=== PATIENT | male | born 1960 | race American Indian/Alaskan Native ===

== ENCOUNTER 2016-08-20 17:38 | Emergency (ER) | payer MEDICARE ==
[2016-08-20 18:20] LABS: Basophils % (Auto) 0.6 % (0.0-1.8); Hematocrit 35.6 % (35.5-45.6); Hemoglobin 11.8 gm/dl (11.8-15.2); Mean Corpuscular HGB Conc 33 % (32-34); Mean Corpuscular Hemoglobin 32 pg (28-32); Mean Corpuscular Volume 98 fl (84-94); Platelet Count 235 K/mm3 (140-440); Red Blood Count 3.65 M/mm3 (3.65-5.03); Red Cell Distribution Width 12.6 % (13.2-15.2); White Blood Count 5.1 K/mm3 (4.5-11.0)
[2016-08-20 18:33] LABS: Anion Gap 17 mmol/L; BUN/Creatinine Ratio 13.84; Blood Urea Nitrogen 18 mg/dL (9-20); Calcium 8.8 mg/dL (8.4-10.2); Carbon Dioxide 27 mmol/L (22-30); Chloride 104.2 mmol/L (98-107); Glucose 108 mg/dL (75-100); Potassium 3.9 mmol/L (3.6-5.0); Sodium 144 mmol/L (137-145)
--- NOTE | 2016-08-20 19:18 | XRay Report ---
FINAL REPORT PROCEDURE: XR CHEST ROUTINE 2V TECHNIQUE: PA and lateral chest radiographs were obtained. CPT 59750 HISTORY: CHEST PAIN COMPARISON: No prior studies are available for comparison. FINDINGS: Heart: Normal contour. Mediastinum/Vessels: Normal contour. Lungs/Pleural space: There are radiopaque metal BBs overlying the chest wall. No infiltrate, effusion, or pneumothorax is seen. Bony thorax: No acute osseous abnormality. Other: IMPRESSION: Metal density BBs are noted. No radiographic evidence of acute cardiopulmonary disease process.
--- NOTE | 2016-08-20 21:05 | Emergency Department Report ---
ED Chest Pain HPI - General Chief Complaint: Chest Pain Stated Complaint: CHEST PAIN Time Seen by Provider: 08/20/16 20:15 Source: patient Mode of arrival: Ambulatory Limitations: No Limitations - History of Present Illness Initial Comments: This is a 55-year-old Afro-[place] male presents to the emergency department with complaint of midsternal chest pain that was going on and off since this morning. The patient had an occasional cough and the chest pain worsened with cough or deep respirations. However he denied any shortness breath, nausea, vomiting or diaphoresis. He said that the chest pain occurred in 2 different segments. He had one early this morning and it went away on its own. In the second one occurred he came in to be seen but it has also stopped without any intervention and he is currently asymptomatic. He has a history of HIV, hyperthyroidism and takes meds compliantly for these conditions. He has a primary care physician but he cannot remember the name currently. He admits to tobacco use but denies any illicit drug use. No recent travel or sick contacts at home. Severity scale (0 -10): 0 - Related Data Home Medications Medication Instructions Recorded Confirmed Last Taken Elvitegr/Cobicist/Emtric/Tenof 1 each PO DAILY 12/30/14 08/20/16 12/30/14 [Stribild Tablet] Methimazole [Tapazole] 15 mg PO DAILY 08/20/16 08/20/16 Unknown Allergies Allergy/AdvReac Type Severity Reaction Status Date / Time No Known Allergies Allergy Verified 08/20/16 17:46 CHELSEA score - Chelsea Score Age > 65: (0) No Aspirin use within the Past 7 Days: (0) No 3 or more CAD Risk Factors: (0) No 2 or more Angina events in past 24 hrs: (1) Yes Known CAD with more than 50% Stenosis: (0) No Elevated Cardiac Markers: (0) No ST Deviation Greater than 0.5mm: (0) No CHELSEA Score: 1 ED Review of Systems ROS: Stated complaint: CHEST PAIN Other details as noted in HPI Comment: All other systems reviewed and negative Constitutional: denies: chills, fever Eyes: denies: eye pain, eye discharge, vision change ENT: denies: ear pain, throat pain Respiratory: cough. denies: shortness of breath, wheezing Cardiovascular: chest pain. denies: palpitations Gastrointestinal: denies: abdominal pain, nausea, diarrhea Genitourinary: denies: urgency, dysuria Musculoskeletal: denies: back pain, joint swelling, arthralgia Skin: denies: rash, lesions Neurological: denies: headache, weakness, paresthesias ED Past Medical Hx - Past Medical History Hx HIV: Yes Additional medical history: HYPERTHYROID - Surgical History Past Surgical History?: No - Social History Smoking Status: Current Every Day Smoker Substance Use Type: Alcohol - Medications Home Medications: Home Medications Medication Instructions Recorded Confirmed Last Taken Type Elvitegr/Cobicist/Emtric/Tenof 1 each PO DAILY 12/30/14 08/20/16 12/30/14 History [Stribild Tablet] Methimazole [Tapazole] 15 mg PO DAILY 08/20/16 08/20/16 Unknown History ED Physical Exam - General Limitations: No Limitations - Other Other exam information: GENERAL: The patient is well-developed well-nourished. HEENT: Normocephalic. Atraumatic. Extraocular motions are intact. Patient has moist mucous membranes. Pupils equal reactive to light bilaterally. NECK: Supple. Trachea is midline. CHEST/LUNGS: Clear to auscultation. There is no respiratory distress noted. HEART/CARDIOVASCULAR: Regular. There is no tachycardia. There is no gallop rub or murmur. ABDOMEN: Abdomen is soft, nontender. Patient has normal bowel sounds. There is no abdominal distention. SKIN: There is no rash. There is no edema. There is no diaphoresis. NEURO: The patient is awake, alert, and oriented. The patient is cooperative. The patient has no focal neurologic deficits. The patient has normal speech. MUSCULOSKELETAL: There is no tenderness or deformity. There is no limitation range of motion. There is no evidence of acute injury. ED Course Vital Signs 08/20/16 08/20/16 08/20/16 17:47 20:17 20:20 Temperature 98.5 F 98.5 F Pulse Rate 88 65 60 Respiratory 18 23 Rate Blood Pressure 116/79 128/86 O2 Sat by Pulse 98 99 Oximetry 08/20/16 20:29 Temperature Pulse Rate 84 Respiratory 18 Rate Blood Pressure O2 Sat by Pulse 100 Oximetry ED Medical Decision Making - Lab Data Result diagrams: 08/20/16 17:57 08/20/16 17:57 - EKG Data -: EKG Interpreted by Me EKG shows normal: sinus rhythm, axis, intervals, QRS complexes, ST-T waves Rate: normal - EKG Data When compared to previous EKG there are: changes noted (current EKG appears improved.His EKG showed some T-wave inversions to the anterior lateral leads and was consistent with LVH as well), previous EKG unavailable Interpretation: normal EKG - Radiology Data Radiology results: image reviewed interpreted by me: Chest x-ray did not show any acute process. Heart is normal shape and size. No effusions. No pneumothorax. No signs of pneumonia seen. - Medical Decision Making 55-year-old male presents with 2 episodes of chest pain that occurred earlier in the day but have since resolved and not returned. He was evaluated with physical exam, labs, imaging and EKG. EKG does not show any signs of ST elevation CT or dysrhythmia. Chest x-ray does not show any pneumothorax, pleural effusions, pneumonia or any acute process. His labs are unremarkable including negative troponins 2 and a negative d-dimer. Patient has been reevaluated multiple times over multiple hours and has remained asymptomatic. He has a CHELSEA score of 1 if his chest pain is considered angina and 0 if not. He is low on the heart score criteria for any near future adverse cardiac events. The patient will be encouraged to follow-up with his primary care doctor but will also be given a referral for cardiology for a possible outpatient stress test. He will return to the emergency department immediately with any return of his chest discomfort, any shortness of breath, or any acute distress. He understands and agrees the plan. - Differential Diagnosis CT, PE, costochondritis, GERD, pneumonia Critical Care Time: No Critical care attestation.: If time is entered above; I have spent that time in minutes in the direct care of this critically ill patient, excluding procedure time. ED Disposition Clinical Impression: Chest pain Qualifiers: Chest pain type: unspecified Qualified Code(s): R07.9 - Chest pain, unspecified Disposition: DC-01 TO HOME OR SELFCARE Is pt being admited?: No Condition: Stable Instructions: Chest Pain (ED) Additional Instructions: Please follow-up with your primary care physician in the next few days. I referral for a local chocolate temperer, Dr. Leiva, patient would like to follow-up regarding your previous chest pain. Return to the emergency department immediately or call 911 with any return of your chest pain, development of shortness of breath, or any acute distress. Referrals: PRIMARY CARE, [Primary Care Provider] - 3-5 Days EVELYNE LEIVA MD [Staff Physician] - 3-5 Days Time of Disposition: 21:51
[2016-08-20 21:57] VITALS: BP 113/61
== END 2016-08-20 22:02 | disposition home or self-care (01) ==
LOC: ED 17:38
DX: R07.81 Pleurodynia (principal); E05.90 Thyrotoxicosis, unspecified without thyrotoxic crisis or storm; F17.200 Nicotine dependence, unspecified, uncomplicated
CPT/HCPCS: 36415; 71020; 80048; 84443; 84484; 85025; 85379; 93005; 93010; 99285

== ENCOUNTER 2016-10-07 09:14 | Emergency (ER) | payer MEDICARE ==
--- NOTE | 2016-10-07 12:21 | Emergency Department Report ---
- General Chief Complaint: Upper Respiratory Infection Stated Complaint: CHEST PAIN/COUGH Time Seen by Provider: 10/07/16 12:07 Source: patient Mode of arrival: Ambulatory Limitations: No Limitations - History of Present Illness Initial Comments: pt is s 56 y/o aam with hiv pos who presents for head congestion clear post nasal drip and cough clear productive x 1 week, pt has IDP follow up scheduled to see same next month pt denies fever no chills no n/v MD Complaint: cough, sore throat, rhinorrhea, nasal congestion Onset/Timin -: week(s) Severity: moderate Severity scale (0 -10): 4 Consistency: constant Improves With: nothing Worsens With: activity Associated Symptoms: rhinorrhea, nasal congestion, sore throat, cough Treatments Prior to Arrival: none - Related Data Home Medications Medication Instructions Recorded Confirmed Last Taken Elvitegr/Cobicist/Emtric/Tenof 1 each PO DAILY 12/30/14 08/20/16 12/30/14 [Stribild Tablet] Methimazole [Tapazole] 15 mg PO DAILY 08/20/16 08/20/16 Unknown Previous Rx's Medication Instructions Recorded Last Taken Type Azithromycin [Zithromax TAB] 250 mg PO QDAY #6 tablet 10/07/16 Unknown Rx Guaifenesin/Pseudoephedrne HCl 1 tab PO BID #24 tab 10/07/16 Unknown Rx [Mucinex D ER 1,200-120 mg Tab] Ibuprofen [Motrin 800 MG tab] 800 mg PO Q8HR PRN #30 tablet 10/07/16 Unknown Rx Allergies Allergy/AdvReac Type Severity Reaction Status Date / Time No Known Allergies Allergy Verified 08/20/16 17:46 ED Review of Systems ROS: Stated complaint: CHEST PAIN/COUGH Other details as noted in HPI Constitutional: denies: chills, fever Eyes: denies: eye pain, eye discharge, vision change ENT: throat pain, congestion Respiratory: cough. denies: shortness of breath, wheezing Cardiovascular: denies: chest pain, palpitations Endocrine: no symptoms reported Gastrointestinal: denies: abdominal pain, nausea, diarrhea Genitourinary: denies: urgency, dysuria Musculoskeletal: denies: back pain, joint swelling, arthralgia Skin: denies: rash, lesions Neurological: denies: headache, weakness, paresthesias Psychiatric: as per HPI Hematological/Lymphatic: denies: easy bleeding, easy bruising ED Past Medical Hx - Past Medical History Previous Medical History?: Yes Hx HIV: Yes Additional medical history: HYPERTHYROID - Surgical History Past Surgical History?: No - Social History Smoking Status: Current Every Day Smoker Substance Use Type: Alcohol - Medications Home Medications: Home Medications Medication Instructions Recorded Confirmed Last Taken Type Elvitegr/Cobicist/Emtric/Tenof 1 each PO DAILY 12/30/14 08/20/16 12/30/14 History [Stribild Tablet] Methimazole [Tapazole] 15 mg PO DAILY 08/20/16 08/20/16 Unknown History Azithromycin [Zithromax TAB] 250 mg PO QDAY #6 tablet 10/07/16 Unknown Rx Guaifenesin/Pseudoephedrne HCl 1 tab PO BID #24 tab 10/07/16 Unknown Rx [Mucinex D ER 1,200-120 mg Tab] Ibuprofen [Motrin 800 MG tab] 800 mg PO Q8HR PRN #30 tablet 10/07/16 Unknown Rx ED Physical Exam - General Limitations: No Limitations General appearance: alert, in no apparent distress - Head Head exam: Present: atraumatic, normocephalic - Eye Eye exam: Present: normal appearance, PERRL, EOMI - ENT ENT exam: Present: mucous membranes moist, TM's normal bilaterally - Expanded ENT Exam Expanded Ear exam: Present: normal external inspection Mouth exam: Present: normal external inspection. Absent: trismus Throat exam: Positive: tonsillar erythema, tonsillomegaly. Negative: tonsillar exudate, R peritonsillar mass, L peritonsillar mass - Neck Neck exam: Present: normal inspection - Respiratory Respiratory exam: Present: normal lung sounds bilaterally, chest wall tenderness. Absent: respiratory distress, wheezes, rhonchi, stridor, accessory muscle use, decreased breath sounds, prolonged expiratory - Cardiovascular Cardiovascular Exam: Present: regular rate, normal rhythm, normal heart sounds. Absent: systolic murmur, diastolic murmur, rubs, gallop - GI/Abdominal GI/Abdominal exam: Present: soft, normal bowel sounds - Rectal Rectal exam: Present: deferred - Extremities Exam Extremities exam: Present: normal inspection - Back Exam Back exam: Present: normal inspection - Neurological Exam Neurological exam: Present: alert, oriented X3, CN II-XII intact, normal gait, reflexes normal - Psychiatric Psychiatric exam: Present: normal affect, normal mood - Skin Skin exam: Present: warm, dry, intact, normal color. Absent: rash ED Course Vital Signs 10/07/16 09:21 Temperature 99.1 F Pulse Rate 78 Respiratory 18 Rate Blood Pressure 133/78 O2 Sat by Pulse 98 Oximetry ED Medical Decision Making - Medical Decision Making pt is a 56 y/o aam with hx hiv , on ART, has IDP follow, pt presents for uri cough head congestion post nasal drip with sore throat x 1 week pt denies fever no chills no sob no wheezing, pt endors adherence with medication regimine exam : TMs clear bilat, nose: bilat turbinate erythema boggy clear post nasal drip, pharnx: moderat erythema no exudate no lesion mild swelling uvula midline, no stridor airway is patent there is no wheezing lungs clear bilat all lobes, plan : Zpack, Mucinex D, Ibuprofen, follow up with pcp IDP as scheduled pt verbalized agreement and understanding with same. Critical care attestation.: If time is entered above; I have spent that time in minutes in the direct care of this critically ill patient, excluding procedure time. ED Disposition Clinical Impression: URI (upper respiratory infection) Qualifiers: URI type: acute nasopharyngitis (common cold) Qualified Code(s): J00 - Acute nasopharyngitis [common cold] Disposition: TO HOME OR SELFCARE Is pt being admited?: No Does the pt Need Aspirin: No Condition: Good Instructions: Upper Respiratory Infection (ED) Additional Instructions: follow up with your IDP doctor as scheduled Prescriptions: Azithromycin [Zithromax TAB] 250 mg PO QDAY #6 tablet Guaifenesin/Pseudoephedrne HCl [Mucinex D ER 1,200-120 mg Tab] 1 tab PO BID #24 tab Ibuprofen [Motrin 800 MG tab] 800 mg PO Q8HR PRN #30 tablet PRN Reason: Pain , Severe (7-10) Referrals: PRIMARY CARE,MD [Primary Care Provider] - 3-5 Days Forms: Work/School Release Form(ED) Time of Disposition: 12:30
[2016-10-07 12:49] VITALS: BP 132/87
== END 2016-10-07 12:48 | disposition home or self-care (01) ==
LOC: ED 09:14
DX: J06.9 Acute upper respiratory infection, unspecified (principal); J00 Acute nasopharyngitis [common cold]; F17.200 Nicotine dependence, unspecified, uncomplicated
CPT/HCPCS: 99282

== ENCOUNTER 2018-06-02 13:12 | Emergency (ER) | payer MEDICARE ==
--- NOTE | 2018-06-02 13:27 | Emergency Department Report ---
Chief Complaint: Chest Pain Stated Complaint: CHEST PAIN Time Seen by Provider: 06/02/18 13:24 - HPI History of Present Illness: CP DESCRIBED CRAMP SUBSTERNAL SINCE TH TODAY WAS WORSE SOME BETTER NOW PMH HYPERTHYROIDISM HIV PSH NONE RX ANTIVIRAL-GENVOYA AND SYNTHROID PCP NOT SEEN IN 6M UNABLE TO GET SCHEDULED RYAN IDP CIG ETOH NO DRUGS MSE COMPLETED MSE screening note: Focused history and physical exam performed. Due to findings the following was ordered: ED Disposition for MSE Condition: Stable
--- NOTE | 2018-06-02 13:29 | Event Note ---
LAST VIRAL LOAD ETC 6 M AGO DAD DEC CA MOM A/W NO FEVER POS CHILLS
[2018-06-02 14:30] LABS: Hematocrit 39.8 % (35.5-45.6); Hemoglobin 13.4 gm/dl (11.8-15.2); Mean Corpuscular HGB Conc 34 % (32-34); Mean Corpuscular Volume 101 fl (84-94); Platelet Count 263 K/mm3 (140-440); Red Blood Count 3.95 M/mm3 (3.65-5.03); Red Cell Distribution Width 12.4 % (13.2-15.2)
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
[2018-06-02 15:26] LABS: Alanine Aminotransferase 13 units/L (7-56); Albumin 4.4 g/dL (3.9-5); BUN/Creatinine Ratio 12; Blood Urea Nitrogen 13 mg/dL (9-20); Calcium 9.2 mg/dL (8.4-10.2); Hemolysis Index 5
[2018-06-02 16:52] LABS: Bilirubin,Urine NEG (Negative); Blood,Urine MOD (Negative); Color,Urine Yellow (Yellow); Mucus,Urine 1+ /HPF; Protein,Urine <15 mg/dL mg/dL (Negative)
[2018-06-02 17:05] LABS: Chol/HDL Ratio 2.7 %
[2018-06-02] MEDS ORDERED: IBUPROFEN PO ONE (17:34)
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
[2018-06-02 17:57] VITALS: BP 122/76
== END 2018-06-02 17:56 | disposition home or self-care (01) ==
LOC: ED 13:12
DX: M94.0 Chondrocostal junction syndrome [Tietze] (principal); E05.90 Thyrotoxicosis, unspecified without thyrotoxic crisis or storm; F17.200 Nicotine dependence, unspecified, uncomplicated; Z21 Asymptomatic human immunodeficiency virus [HIV] infection status
CPT/HCPCS: 36415; 71046; 80053; 80061; 81001; 84443; 84484; 85027; 93005; 93010; 99284

== ENCOUNTER 2019-05-28 16:22 | Emergency (ER) | payer MEDICARE ==
[2019-05-28 17:32] VITALS: BP 154/95
[2019-05-28] MEDS ORDERED: diphenhydrAMINE 25 MG CAP PO ONE (21:34)
[2019-05-28] MEDS ORDERED: dexAMETHasone 20 MG/5 ML VIAL IM ONE (21:34)
[2019-05-28] MEDS ORDERED: ACETAMINOPHEN 500 MG TAB PO ONE (21:34)
[2019-05-28] MEDS ORDERED: METOCLOPRAMIDE 10 MG TAB PO ONE (21:34)
--- NOTE | 2019-05-28 22:32 | Emergency Department Report ---
ED Headache HPI - General Chief Complaint: Headache Stated Complaint: HEAD PAIN/LT SIDE Time Seen by Provider: 05/28/19 21:34 - History of Present Illness Initial Comments: Mr. Stevenson is a 58 y/o aam, who presents for posterior headache 4/10 aching, with associated neck spasm. There is no dizziness, no lightheadedness, no photophobia. Pt has had similar headaches in past. Pt denies fall, injury, or trauma. Pain is exacerbated by movement and activity. pain is relieved by rest. Quality: moderate Head Injury Location: occipital Recent Head Trauma: occasional headaches Modifying Factors: improves with: movement, other (activity ) Associated Symptoms: denies: fatigue, facial pain, fever/chills, nausea /vomiting, nasal congestion, nasal drainage, sinus infection, stiff neck, vision changes, weakness Allergies/Adverse Reactions: Allergies No Known Allergies Allergy (Verified 08/20/16 17:46) Home Medications: Ambulatory Orders Elviteg/Cob/Emtri/Tenofo Disop [Stribild Tablet] 1 each PO DAILY 12/30/14 methIMAzole [Tapazole] 15 mg PO DAILY 08/20/16 Azithromycin [Zithromax TAB] 250 mg PO QDAY #6 tablet 10/07/16 Guaifenesin/Pseudoephedrne HCl [Mucinex D ER 1,200-120 mg Tab] 1 tab PO BID #24 tab 10/07/16 Ibuprofen [Motrin 800 MG tab] 800 mg PO Q8HR PRN #30 tablet 10/07/16 Cyclobenzaprine [Flexeril] 10 mg PO QHS PRN #10 tablet 06/02/18 Ibuprofen [Motrin] 600 mg PO Q8H PRN #20 tablet 06/02/18 Acetaminophen [Tylenol] 1,000 mg PO Q6HR PRN #30 tablet 05/28/19 Menthol/Camphor [[place] Ointment] 1 applicatio TP QID PRN #1 tube 05/28/19 Metoclopramide [Reglan] 10 mg PO TID PRN #30 tab 05/28/19 diphenhydrAMINE [Benadryl CAP] 25 mg PO Q6H PRN #30 capsule 05/28/19 ED Review of Systems ROS: Stated complaint: HEAD PAIN/LT SIDE Other details as noted in HPI Constitutional: denies: chills, fever, malaise Eyes: denies: eye pain, eye discharge, vision change ENT: denies: ear pain, throat pain Respiratory: denies: cough, shortness of breath, wheezing Cardiovascular: denies: chest pain, palpitations Endocrine: no symptoms reported Gastrointestinal: denies: abdominal pain, nausea, vomiting, diarrhea Genitourinary: denies: urgency, dysuria Musculoskeletal: other (neck pain ). denies: back pain, joint swelling, arthralgia, myalgia Skin: denies: rash, lesions Neurological: headache. denies: weakness, paresthesias Psychiatric: denies: anxiety, depression Hematological/Lymphatic: denies: easy bleeding, easy bruising ED Past Medical Hx - Past Medical History Previous Medical History?: Yes Hx HIV: Yes Additional medical history: HYPERTHYROID - Surgical History Past Surgical History?: No - Social History Smoking Status: Current Every Day Smoker Substance Use Type: Alcohol - Medications Home Medications: Home Medications Medication Instructions Recorded Confirmed Last Taken Type Elviteg/Cob/Emtri/Tenofo Disop 1 each PO DAILY 12/30/14 08/20/16 12/30/14 History [Stribild Tablet] methIMAzole [Tapazole] 15 mg PO DAILY 08/20/16 08/20/16 Unknown History Azithromycin [Zithromax TAB] 250 mg PO QDAY #6 tablet 10/07/16 Unknown Rx Guaifenesin/Pseudoephedrne HCl 1 tab PO BID #24 tab 10/07/16 Unknown Rx [Mucinex D ER 1,200-120 mg Tab] Ibuprofen [Motrin 800 MG tab] 800 mg PO Q8HR PRN #30 tablet 10/07/16 Unknown Rx Cyclobenzaprine [Flexeril] 10 mg PO QHS PRN #10 tablet 06/02/18 Unknown Rx Ibuprofen [Motrin] 600 mg PO Q8H PRN #20 tablet 06/02/18 Unknown Rx Acetaminophen [Tylenol] 1,000 mg PO Q6HR PRN #30 tablet 05/28/19 Unknown Rx Menthol/Camphor [[place] 1 applicatio TP QID PRN #1 tube 05/28/19 Unknown Rx Ointment] Metoclopramide [Reglan] 10 mg PO TID PRN #30 tab 05/28/19 Unknown Rx diphenhydrAMINE [Benadryl CAP] 25 mg PO Q6H PRN #30 capsule 05/28/19 Unknown Rx ED Physical Exam - General Limitations: No Limitations General appearance: alert, in no apparent distress - Head Head exam: Present: atraumatic, normocephalic - Eye Eye exam: Present: normal appearance, PERRL, EOMI Pupils: Present: normal accommodation - ENT ENT exam: Present: normal orophraynx, mucous membranes moist, TM's normal bilaterally, normal external ear exam - Neck Neck exam: Present: normal inspection, full ROM. Absent: tenderness, meningismus, lymphadenopathy, thyromegaly - Expanded Neck Exam Expanded Neck exam: Absent: tenderness (no posterior vertebral point tenderness rom intact and unrestricted to all rangel), midline deformity, anterior neck swelling, carotid bruit, tracheal deviation - Respiratory Respiratory exam: Present: normal lung sounds bilaterally. Absent: respiratory distress, wheezes, chest wall tenderness - Cardiovascular Cardiovascular Exam: Present: regular rate, normal rhythm, normal heart sounds. Absent: systolic murmur, diastolic murmur, rubs, gallop - GI/Abdominal GI/Abdominal exam: Present: soft, normal bowel sounds. Absent: distended, tenderness, bruit, hernia - Rectal Rectal exam: Present: deferred - Extremities Exam Extremities exam: Present: normal inspection, full ROM, normal capillary refill. Absent: tenderness, pedal edema, calf tenderness - Back Exam Back exam: Present: normal inspection, full ROM, rash noted. Absent: tenderness, CVA tenderness (R), CVA tenderness (L), muscle spasm, paraspinal tenderness, vertebral tenderness - Neurological Exam Neurological exam: Present: alert, oriented X3, CN II-XII intact, normal gait, reflexes normal. Absent: motor sensory deficit - Psychiatric Psychiatric exam: Present: normal affect, normal mood - Skin Skin exam: Present: warm, dry, intact, normal color. Absent: rash ED Course Vital Signs 05/28/19 17:30 Temperature 97.9 F Pulse Rate 81 Respiratory 18 Rate Blood Pressure 154/95 O2 Sat by Pulse 97 Oximetry ED Medical Decision Making - Medical Decision Making Headache is improved with medications given in ED. Patient is currently alert and oriented x3 amatory steady gait pain reduced to 1/10. Patient will be DC'd home with prescriptions will follow-up with primary care doctor in 2 to 3 days. Patient verbalized agreement and understanding of discharge plan DC'd in stable condition at this time. Critical care attestation.: If time is entered above; I have spent that time in minutes in the direct care of this critically ill patient, excluding procedure time. ED Disposition Clinical Impression: Headache Qualifiers: Headache type: tension-type Headache chronicity pattern: unspecified pattern Intractability: not intractable Qualified Code(s): G44.209 - Tension-type headache, unspecified, not intractable Disposition: DC-01 TO HOME OR SELFCARE Is pt being admited?: No Does the pt Need Aspirin: No Condition: Stable Instructions: Acute Headache (ED), Muscle Spasm (ED) Prescriptions: Acetaminophen [Tylenol] 1,000 mg PO Q6HR PRN #30 tablet PRN Reason: Headache diphenhydrAMINE [Benadryl CAP] 25 mg PO Q6H PRN #30 capsule PRN Reason: Headache Metoclopramide [Reglan] 10 mg PO TID PRN #30 tab PRN Reason: Headache Menthol/Camphor [[place] Ointment] 1 applicatio TP QID PRN #1 tube PRN Reason: muscle pain Referrals: MARTÍNEZ GARZA MD [Staff Physician] - 3-5 Days Forms: Work/School Release Form(ED) Time of Disposition: 22:43
== END 2019-05-28 22:50 | disposition home or self-care (01) ==
LOC: ED 16:22
DX: R51 Headache (principal); R25.2 Cramp and spasm; E05.90 Thyrotoxicosis, unspecified without thyrotoxic crisis or storm; F17.200 Nicotine dependence, unspecified, uncomplicated; Z79.1 Long term (current) use of non-steroidal anti-inflammatories (NSAID); Z79.2 Long term (current) use of antibiotics; Z79.899 Other long term (current) drug therapy; Z21 Asymptomatic human immunodeficiency virus [HIV] infection status
CPT/HCPCS: 96372; 99282; J1100

== ENCOUNTER 2020-06-30 12:41 | Emergency (ER) | payer SELFPAY ==
--- NOTE | 2020-06-30 16:42 | Event Note ---
ED Screening Note Date of service: 06/30/20 Time: 16:39 ED Screening Note: 59-year-old male patient with history of hypothyroidism and HIV (compliant with medications; undetectable viral load) presents to the emergency department with complaints of painful urination and a left inguinal mass. No fever. No vomiting. No changes in bowel habits. No testicular pain/swelling. No penile discharge. General: Awake, appropriately interactive, no acute distress. Neck: Supple. Full range of motion intact. Cardiovascular: Normal peripheral perfusion. Pulmonary: No respiratory distress. Patient is speaking normally without use of accessory muscles. 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 Left inguinal/suprapubic mass, tender to palpation, no overlying warmth or erythema, not easily reducible, not mobile, no fluctuance, mass does not protrude with Valsalva maneuver. Skin: No apparent rashes or lesions. Neurological: No facial asymmetry. Speech is clear. Follows commands. Patient is alert and oriented. Musculoskeletal: Moves all four extremities spontaneously with normal range of motion. Psych: Cooperative. Appropriate mood and affect. I have greeted and performed a focused rapid initial assessment of this patient. A comprehensive ED assessment and evaluation of the patient, analysis of all test results, and completion of the medical decision-making process will be conducted by additional ED providers. This initial assessment/diagnostic orders/clinical plan/treatment(s) is/are subject to change based on patients health status, clinical progression and re-assessment. Further treatment and workup at subsequent clinical provider's discretion. Patient/guardian urged not to elope from the ED as their condition may be serious if not clinically assessed and managed.
[2020-06-30 17:32] LABS: Basophils # (Auto) 0.1 K/mm3 (0.0-0.1); Eosinophils # (Auto) 0.3 K/mm3 (0.0-0.4); Eosinophils % (Auto) 5.6 % (0.0-4.3); Hematocrit 36.4 % (35.5-45.6); Hemoglobin 12.3 gm/dl (11.8-15.2); Lymphocytes # (Auto) 2.2 K/mm3 (1.2-5.4); Lymphocytes % (Auto) 41.4 % (13.4-35.0); Mean Corpuscular HGB Conc 34 % (32-34); Mean Corpuscular Volume 98 fl (84-94); Monocytes # (Auto) 0.7 K/mm3 (0.0-0.8); Monocytes % (Auto) 13.1 % (0.0-7.3); Platelet Count 263 K/mm3 (140-440); Red Cell Distribution Width 12.6 % (13.2-15.2)
[2020-06-30 18:09] LABS: Alanine Aminotransferase 19 units/L (7-56); Albumin 4.1 g/dL (3.9-5); BUN/Creatinine Ratio 12; Blood Urea Nitrogen 12 mg/dL (9-20); Calcium 8.9 mg/dL (8.4-10.2); Hemolysis Index 8
[2020-06-30 19:02] LABS: Bilirubin,Urine NEG (Negative); Blood,Urine NEG (Negative); Color,Urine Yellow (Yellow); Mucus,Urine 2+ /HPF; Protein,Urine <15 mg/dL mg/dL (Negative); WBC,Urine < 1.0 /HPF (0.0-6.0)
[2020-06-30] MEDS ORDERED: SODIUM CHLORIDE 0.9% 1000 ML 1,000 ML IV ONE (20:01)
[2020-06-30] MEDS ORDERED: MORPHINE 4 MG/1 ML INJ IV ONE (20:01)
[2020-06-30] MEDS ORDERED: ONDANSETRON 4 MG/2 ML INJ IV ONE (20:01)
--- NOTE | 2020-06-30 20:04 | Emergency Department Report ---
ED General Adult HPI - General Chief complaint: Extremity Injury, Lower Stated complaint: PAIN IN GROIN Time Seen by Provider: 06/30/20 19:45 Source: patient Mode of arrival: Ambulatory Limitations: No Limitations - History of Present Illness Initial comments: Patient is 59 years old male with history of HIV. Patient presented to the ER complaining of left groin swelling that is been going on for 3 days. Patient stated that he had it before but for the last few days became painful. He stated that pain increase with urination. Patient denied any fever or chills. No nausea or vomiting. - Related Data Home Medications Medication Instructions Recorded Confirmed Last Taken Elviteg/Cob/Emtri/Tenofo Disop 1 each PO DAILY 12/30/14 08/20/16 12/30/14 [Stribild Tablet] methIMAzole [Tapazole] 15 mg PO DAILY 08/20/16 08/20/16 Unknown Previous Rx's Medication Instructions Recorded Last Taken Type Azithromycin [Zithromax TAB] 250 mg PO QDAY #6 tablet 10/07/16 Unknown Rx Guaifenesin/Pseudoephedrne HCl 1 tab PO BID #24 tab 10/07/16 Unknown Rx [Mucinex D ER 1,200-120 mg Tab] Ibuprofen [Motrin 800 MG tab] 800 mg PO Q8HR PRN #30 tablet 10/07/16 Unknown Rx Cyclobenzaprine [Flexeril] 10 mg PO QHS PRN #10 tablet 06/02/18 Unknown Rx Ibuprofen [Motrin] 600 mg PO Q8H PRN #20 tablet 06/02/18 Unknown Rx Acetaminophen [Tylenol] 1,000 mg PO Q6HR PRN #30 tablet 05/28/19 Unknown Rx Menthol/Camphor [[place] 1 applicatio TP QID PRN #1 tube 05/28/19 Unknown Rx Ointment] Metoclopramide [Reglan] 10 mg PO TID PRN #30 tab 05/28/19 Unknown Rx diphenhydrAMINE [Benadryl CAP] 25 mg PO Q6H PRN #30 capsule 05/28/19 Unknown Rx Allergies Allergy/AdvReac Type Severity Reaction Status Date / Time No Known Allergies Allergy Verified 06/30/20 14:26 ED Review of Systems ROS: Stated complaint: PAIN IN GROIN Other details as noted in HPI Comment: All other systems reviewed and negative Constitutional: denies: chills, fever Respiratory: denies: cough, shortness of breath, SOB with exertion Cardiovascular: denies: chest pain, palpitations Gastrointestinal: denies: abdominal pain, nausea, vomiting, diarrhea, constipation, hematemesis, melena, hematochezia Genitourinary: dysuria Musculoskeletal: denies: back pain Neurological: denies: headache, weakness, numbness, paresthesias, confusion ED Past Medical Hx - Past Medical History Hx HIV: Yes Additional medical history: HYPERTHYROID - Social History Smoking Status: Current Every Day Smoker Substance Use Type: None - Medications Home Medications: Home Medications Medication Instructions Recorded Confirmed Last Taken Type Elviteg/Cob/Emtri/Tenofo Disop 1 each PO DAILY 12/30/14 08/20/16 12/30/14 History [Stribild Tablet] methIMAzole [Tapazole] 15 mg PO DAILY 08/20/16 08/20/16 Unknown History Azithromycin [Zithromax TAB] 250 mg PO QDAY #6 tablet 10/07/16 Unknown Rx Guaifenesin/Pseudoephedrne HCl 1 tab PO BID #24 tab 10/07/16 Unknown Rx [Mucinex D ER 1,200-120 mg Tab] Ibuprofen [Motrin 800 MG tab] 800 mg PO Q8HR PRN #30 tablet 10/07/16 Unknown Rx Cyclobenzaprine [Flexeril] 10 mg PO QHS PRN #10 tablet 06/02/18 Unknown Rx Ibuprofen [Motrin] 600 mg PO Q8H PRN #20 tablet 06/02/18 Unknown Rx Acetaminophen [Tylenol] 1,000 mg PO Q6HR PRN #30 tablet 05/28/19 Unknown Rx Menthol/Camphor [[place] 1 applicatio TP QID PRN #1 tube 05/28/19 Unknown Rx Ointment] Metoclopramide [Reglan] 10 mg PO TID PRN #30 tab 05/28/19 Unknown Rx diphenhydrAMINE [Benadryl CAP] 25 mg PO Q6H PRN #30 capsule 05/28/19 Unknown Rx ED Physical Exam - General Limitations: No Limitations General appearance: alert, in no apparent distress - Head Head exam: Present: atraumatic, normocephalic, normal inspection - Eye Eye exam: Present: normal appearance, PERRL - ENT ENT exam: Present: normal exam, normal orophraynx, mucous membranes moist - Neck Neck exam: Present: normal inspection, full ROM. Absent: tenderness, meningismus - Respiratory Respiratory exam: Present: normal lung sounds bilaterally - Cardiovascular Cardiovascular Exam: Present: regular rate, normal rhythm, normal heart sounds - GI/Abdominal GI/Abdominal exam: Present: soft, normal bowel sounds, hernia (Left inguinal). Absent: distended, tenderness, guarding, rebound, rigid, organomegaly, bruit, pulsatile mass - Extremities Exam Extremities exam: Present: normal inspection, full ROM, normal capillary refill. Absent: pedal edema, calf tenderness - Back Exam Back exam: Present: normal inspection, full ROM. Absent: CVA tenderness (R), CVA tenderness (L) - Neurological Exam Neurological exam: Present: alert, oriented X3, CN II-XII intact - Psychiatric Psychiatric exam: Present: normal mood - Skin Skin exam: Present: warm, intact, normal color ED Course Vital Signs 06/30/20 06/30/20 06/30/20 14:25 18:06 20:38 Temperature 98.6 F 98.3 F Pulse Rate 80 61 77 Respiratory 20 14 Rate Blood Pressure Blood Pressure 140/87 151/90 [Left] O2 Sat by Pulse 100 100 Oximetry 06/30/20 06/30/20 06/30/20 20:46 21:00 21:20 Temperature Pulse Rate 79 75 Respiratory 13 13 Rate Blood Pressure Blood Pressure [Left] O2 Sat by Pulse 99 100 97 Oximetry 06/30/20 06/30/20 06/30/20 21:30 21:46 22:00 Temperature Pulse Rate 73 60 68 Respiratory 12 13 15 Rate Blood Pressure 146/92 Blood Pressure [Left] O2 Sat by Pulse 100 98 100 Oximetry 06/30/20 06/30/20 06/30/20 22:18 22:30 22:46 Temperature Pulse Rate 80 69 68 Respiratory 19 11 L 13 Rate Blood Pressure 146/92 134/80 134/80 Blood Pressure [Left] O2 Sat by Pulse 94 97 99 Oximetry 06/30/20 06/30/20 06/30/20 23:00 23:16 23:30 Temperature Pulse Rate 68 67 82 Respiratory 12 15 12 Rate Blood Pressure 134/80 141/81 133/71 Blood Pressure [Left] O2 Sat by Pulse 100 99 99 Oximetry 06/30/20 07/01/20 07/01/20 23:46 00:00 00:16 Temperature Pulse Rate 66 71 96 H Respiratory 12 14 16 Rate Blood Pressure 133/71 137/80 137/92 Blood Pressure [Left] O2 Sat by Pulse 98 98 90 Oximetry 07/01/20 07/01/20 07/01/20 00:30 00:46 01:00 Temperature Pulse Rate 68 69 78 Respiratory 13 16 21 Rate Blood Pressure 136/85 136/85 135/72 Blood Pressure [Left] O2 Sat by Pulse 100 97 96 Oximetry 07/01/20 07/01/20 07/01/20 01:16 01:30 01:46 Temperature Pulse Rate 64 68 92 H Respiratory 12 17 22 Rate Blood Pressure 135/72 124/82 124/82 Blood Pressure [Left] O2 Sat by Pulse 98 100 88 Oximetry 07/01/20 07/01/20 07/01/20 02:00 02:16 02:30 Temperature Pulse Rate 73 88 Respiratory 13 18 Rate Blood Pressure 119/26 119/26 119/26 Blood Pressure [Left] O2 Sat by Pulse 98 100 99 Oximetry 07/01/20 07/01/20 07/01/20 02:46 03:00 03:15 Temperature Pulse Rate 60 69 68 Respiratory 13 14 15 Rate Blood Pressure 43/24 43/24 137/74 Blood Pressure [Left] O2 Sat by Pulse 98 98 97 Oximetry 07/01/20 07/01/20 07/01/20 03:31 03:45 04:00 Temperature Pulse Rate 62 75 77 Respiratory 13 12 10 L Rate Blood Pressure 126/78 126/78 126/78 Blood Pressure [Left] O2 Sat by Pulse 98 99 96 Oximetry 07/01/20 07/01/20 07/01/20 04:15 04:31 04:45 Temperature Pulse Rate 63 86 84 Respiratory 13 13 11 L Rate Blood Pressure 139/87 143/78 143/78 Blood Pressure [Left] O2 Sat by Pulse 99 98 97 Oximetry 07/01/20 07/01/20 07/01/20 05:00 05:15 05:31 Temperature Pulse Rate 78 64 59 L Respiratory 13 10 L 13 Rate Blood Pressure 143/78 130/83 131/87 Blood Pressure [Left] O2 Sat by Pulse 99 98 98 Oximetry 07/01/20 07/01/20 05:45 07:39 Temperature Pulse Rate 67 70 Respiratory 12 15 Rate Blood Pressure 131/87 Blood Pressure 126/83 [Left] O2 Sat by Pulse 99 99 Oximetry - Consultations Consultation #1: 06/30/20 22:15 I discussed the case with Dr. Lakhani, surgeon investigation specialist. She advised to transfer patient to another facility with urology on-call. Consultation #2: 06/30/20 22:25 I discussed the patient with Dr. Contreras, surgeon investigation specialist at [facility]. Dr. Contreras stated that she will not be able to accept the patient tonight because there is nothing that she can do tonight for the patient. She advised to keep the patient in the ER and call in the morning for transfer. Consultation #3: 06/30/20 23:20 Try to contact several hospital for transfer including [facility], [facility], [facility] and [facility]. All this hospital have no bed and they not accept transfer. I discussed the patient again with Dr. Meadows, emergency physician and Dr. Galarza, surgeon on-call at [facility], post accepted the patient to be transfer for further management. ED Medical Decision Making - Lab Data Result diagrams: 06/30/20 16:50 06/30/20 16:50 - Radiology Data Radiology results: report reviewed - Medical Decision Making Patient is 59 years old male with history of HIV. Patient presented to the ER complaining of left groin swelling that is been going on for 3 days. Patient stated that he had it before but for the last few days became painful. He stated that pain increase with urination. Patient denied any fever or chills. No nausea or vomiting. Labs reviewed and is unremarkable. CT abdomen and pelvis showed a left inguinal hernia containing a 6 cm mass most likely bladder. I discussed the patient with Dr. Lakhani, surgeon investigation specialist. Critical Care Time: Yes Critical care time in (mins) excluding proc time.: 30 Critical care attestation.: If time is entered above; I have spent that time in minutes in the direct care of this critically ill patient, excluding procedure time. ED Disposition Clinical Impression: Left inguinal hernia, Hernia of urinary bladder Disposition: DC/TX-70 ANOTHER TYPE HLTHCARE Is pt being admited?: No Condition: Stable Referrals: PRIMARY CARE, [Primary Care Provider] - 3-5 Days
--- NOTE | 2020-06-30 20:55 | Cat Scan Report ---
CT abdomen pelvis w con INDICATION / CLINICAL INFORMATION: left inguinal mass; hx HIV. TECHNIQUE: Axial CT imaging of abdomen and pelvis was obtained with IV contrast. Coronal and sagittal reformatte d imaging obtained and reviewed. All CT scans at this location are performed using CT dose reduction for ALARA by means of automated exposure control. COMPARISON: None available. FINDINGS: CT abdomen with IV contrast demonstrates normal appearance of the liver, spleen, pancreas, kidneys, a nd adrenal glands. Incidental note is made of a 13 mm simple cyst arising from the lower pole of the left kidney. No hydronephrosis or solid renal mass noted. Gallbladder is present. No obvious gallblad ernesto abnormality. No biliary dilatation. CT pelvis with contrast demonstrates a left inguinal hernia. Within the inguinal hernia, there is an oval soft tissue masslike entity measuring approximately 6 cm. There is no definitive bowel identifie d within the hernia. I believe the structure within the inguinal hernia is a portion of the anterior urinary bladder. No additional abnormalities are seen within the pelvis. Prostate gland is of normal size. A normal ap pendix is present in the right lower quadrant. Visualized lung bases are clear. No acute pulmonary or pleural disease. No acute osseous abnormality. IMPRESSION: 1. Left inguinal hernia containing 6 cm masslike entity, which I suspect is a portion of the anterior bladder that has herniated into the left inguinal canal. 2. No additional significant finding. Signer Name: Deb Aguilar MD Signed: 06/30/2020 8:50 PM Workstation Name: [id number]
[2020-07-01 07:40] VITALS: BP 126/83
== END 2020-07-01 08:10 | disposition other institution (70) ==
LOC: ED 12:41
DX: K40.90 Unilateral inguinal hernia, without obstruction or gangrene, not specified as recurrent (principal); N32.89 Other specified disorders of bladder; F17.200 Nicotine dependence, unspecified, uncomplicated; Z21 Asymptomatic human immunodeficiency virus [HIV] infection status; Z79.899 Other long term (current) drug therapy
CPT/HCPCS: 36415; 74177; 80053; 81001; 83735; 85025; 96361; 96374; 96375; 99291; J2270; J2405; J7030; Q9967